=== PATIENT | male | born 1995 | race Caucasian/White ===

== ENCOUNTER 2016-12-09 03:32 | Emergency (ER) | payer OTHER ==
[2016-12-09 03:44] VITALS: TEMP 36.9; Ht 175.3 cm
[2016-12-09] MEDS ORDERED: XYLOCAINE 1%/SOD BICARB 20 ML VIAL INFIL ONE (04:00)
[2016-12-09 04:28] LABS: BLOOD UREA NITROGEN 11 mg/dl (7-18); BUN/CREATININE RATIO 11.4 (10-20); CALCIUM 8.4 mg/dl (8.5-10.1); CARBON DIOXIDE 24 mmol/L (21-32); CHLORIDE 108 mmol/L (98-107); GLUCOSE 114 mg/dl (70-99); POTASSIUM 3.6 mmol/L (3.5-5.1); SODIUM 144 mmol/L (136-145)
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
[2016-12-09 09:19] VITALS: BP 116/95; PULSE 98; O2SAT 98
== END 2016-12-09 09:15 | disposition home or self-care (01) ==
LOC: EDBD 03:32 → C.EDA 03:34
DX: S61.217A Laceration without foreign body of left little finger without damage to nail, initial encounter (principal); F10.929 Alcohol use, unspecified with intoxication, unspecified; W25.XXXA Contact with sharp glass, initial encounter; Y90.8 Blood alcohol level of 240 mg/100 ml or more